=== PATIENT | female | born 1995 | race Two or more races ===

== ENCOUNTER 2024-10-07 17:29 | Emergency (ER) | payer MEDICAID ==
[~2024-10-07] VITALS: Ht 152.4 cm; Wt 45.6 kg
[2024-10-07] MEDS: ACETAMINOPHEN/CODEINE#3 (300/30mg) TAB PO ONE (18:34)
[2024-10-07] MEDS: TETANUS-DIPTH-ACEL PERTUSSIS 0.5ML SYR Tdap IM ONE (18:34)
[2024-10-07] MEDS ORDERED: ACET500T58 PO (18:35)
[2024-10-07] MEDS ORDERED: AMOX875T4 PO (18:35)
[2024-10-07] MEDS: ONDANSETRON ODT 4 MG TAB PO ONE (18:35)
--- NOTE | 2024-10-07 18:38 | ED.PDOC ---
HPI Comments 29-year-old female presents to ER with complaints of laceration to right foot x 15 minutes. Patient reports that she stepped on broken glass with her right foot while walking barefoot in her home 15 minutes prior to arrival to ER and sustained laceration to right foot at that time. Notes that her did pull out a large shard of glass with his fingers and is unsure if any other glass is remaining in her right foot. She rates her current pain a 9/10 to right foot without radiation and is unsure when her last tetanus shot was. Denies numbness/tingling or any further symptoms/complaints Chief Complaint: Laceration Time Seen by MD: 18:10 Primary Care Provider: GHANSHYAM Bergman Notes: Nurses Notes, Medications, Allergies Allergies: Coded Allergies: NO KNOWN ALLERGIES (Unverified , 12/13/12) Home Meds Active Scripts Acetaminophen (Acetaminophen) 500 Mg Tab, 500 MG PO Q4HPRN, #30 TAB 0 Refills Prov:BRENDON MENDEZ 10/07/24 Amoxicillin & Pot Clavulanate (Amoxicillin/Potassium Cla) 875 Mg Tab, 1 TAB PO BID for 7 Days, #14 TAB 0 Refills Prov:BRENDON MENDEZ 10/07/24 Information Source: Patient Mode of Arrival: Wheelchair Complexity: Simple Last Tetanus: Unknown Laceration Length (cm): 3 Past Medical History PAST MEDICAL HISTORY: Anemia Surgical History: Denies all surgeries EMERY WHEEL MOLDER History: No Pertinent EMERY WHEEL MOLDER History [facility] 10-05-24 Family History Family History: Unknown Social History Smoker: Cigarettes, Less Than 1 Pack/Day Alcohol: Denies ETOH Use Drugs: Denies Drug Use Lives In: Home Constitutional: denies: chills, diaphoresis, fatigue, fever, malaise, sweats, weakness, others EENTM: denies: blurred vision, double vision, ear bleeding, ear discharge, ear drainage, ear pain, ear ringing, eye pain, eye redness, hearing loss, mouth pain, mouth swelling, nasal discharge, nose bleeding, nose congestion, nose pain, photophobia, tearing, throat pain, throat swelling, voice changes, others Respiratory: denies: cough, hemoptysis, orthopnea, SOB at rest, shortness of breath, SOB with excertion, stridor, wheezing, others Cardiovascular: denies: chest pain, dizzy spells, diaphoresis, Dyspnea on exertion, edema, irregular heart beat, left arm pain, lightheadedness, palpitations, PND, syncope, others Gastrointestinal: denies: abdomen distended, abdominal pain, blood streaked bowels, constipated, diarrhea, dysphagia, difficulty swallowing, hematemesis, melena, nausea, poor appetite, poor fluid intake, rectal bleeding, rectal pain, vomiting, others Genitourinary: denies: abnormal vagina bleeding, burning, dyspareunia, dysuria, flank pain, frequency, hematuria, incontinence, pain, , vagina discharge, urgency, others Neurological: denies: dizziness, fainting, headache, left sided numbness, left sided weakness, numbness, paresthesia, pre-existing deficit, right sided numbness, right sided weakness, seizure, speech problems, tingling, tremors, weakness, others Musculoskeletal: denies: back pain, gout, joint pain, joint swelling, muscle pain, muscle stiffness, neck pain, others Integumetry: reports: others (As stated in HPI) Allergic/Immunocompromised: denies: Difficulty Healing, Frequent Infections, Hives, Itching, others Hematologic/Lymphatic: denies: anemia, blood clots, easy bleeding, easy bruising, swollen glands, others Endocrine: denies: excessive hunger, excessive sweating, excessive thirst, excessive urination, flushing, intolerance to cold, intolerance to heat, unexplained weight gain, unexplained weight loss, others Psychiatric: denies: anxiety, bipolar disorder, depression, hopeless, panic disorder, schizophrenia, sleepless, suicidal, others Physical Exam General Appearance: No Apparent Distress HEENT: PERRL/EOMI Neck: Full Range of Motion, Non-Tender, Normal Respiratory: Chest Non-Tender, Lungs Clear, No Accessory Muscle Use, No Respiratory Distress, Normal Breath Sounds Cardiovascular: No Murmur, No Gallop, Regular Rate/Rhythm Breast Exam: Deferred Gastrointestinal: NOT DONE Genitalia: Deferred Pelvic: Deferred Rectal: Deferred Extremities: Normal capillary refill, Normal range of motion Neurologic: Alert, No Motor Deficits, Normal Affect, Normal Mood, No Sensory Deficits Cerebellar Function: Normal Reflexes: Normal Skin: Dry, Warm Peripheral Pulses: 2+ dorsalis pedis (R), 2+ dorsalis pedis (L) Lymphatic: No Adenopathy Was a procedure done? Was a procedure done?: Yes Sedation Sedation?: No Laceration Repair : Location Right foot Length 3 cm Anesthetic: Lidocaine (1%), Without epi Laceration Repair Prep: Saline, Betadine, by Irrigation (without any signs of foreign body) Laceration Repair Wound Comple: epidermis/dermis repair Laceration Repair: Number of sutures (3 placed - patient tolerated well without any complication), Size (4-0), Nylon, Simple, Non-adherent gauze Informed consent obtained: Yes Risks, benefits, and alternati: Yes Images 1 - 3 cm laceration noted. Slight TTP/swelling/erythema localized to wound edges. No foreign body/further skin changes noted. Pulses intact. Patient favors left leg on ambulation due to pain localized to laceration of right foot Differential diagnosis Generic Laceration: Fracture, Retained Foriegn Body, Neurovascular Injury, Tendon Injury X-Ray, Labs, Meds, VS Vital Signs Date Time Temp Pulse Resp B/P (MAP) Pulse Ox O2 Delivery O2 Flow Rate FiO2 10/07/24 18:41 86 18 98 Room Air 10/07/24 18:41 98.6 86 16 122/89 (100) 97 98.6 10/07/24 17:33 97.8 90 24 123/95 97 97.8 Current Medications Medications (Trade) Dose Ordered Sig/Seun Route Start Time Stop Time Status Last Admin Diphtheria/ Tetanus/Acell Pertussis (Boostrix T-Dap) 0.5 ml ONCE ONCE IM 10/07/24 18:30 10/07/24 18:31 DC 10/07/24 18:34 Acetaminophen/ Codeine Phosphate (Tylenol W/Cod #3 Tablet) 1 tab ONCE ONCE PO 10/07/24 18:30 10/07/24 18:31 DC 10/07/24 18:34 Ondansetron HCl (Zofran Po) 4 mg ONCE ONCE PO 10/07/24 18:30 10/07/24 18:31 DC 10/07/24 18:35 PATIENT: ANTHONY LITTLEJOHN: [id number]: [id number] : 1995 LOC: ER ROOM / BED: / AGE / SEX: 29 / F ADM STATUS: REG ER SERVICE [id number] ORDERING PHYSICIAN: BRENDON MENDEZ PROCEDURE(s): RFOOT - R FOOT 3 VIEW XRAY REASON: right foot pain/laceration ORDER NUMBER(s): [id number], ACCESSION NUMBER(s): [id number] Indication: right foot pain/laceration Technique: XY R FOOT 3 VIEW XRAYXY Comparison: None FINDINGS/IMPRESSION: No radiographic evidence for acute fracture or dislocation. Soft tissue edema in the heel region. No radiopaque foreign body ATED BY: ZEE TIPTON MD DICTATED DATE/TIME: 10/07/241903 SIGNED BY: ZEE TIPTON MD SIGNED DATE/TIME: 10/07/241903 CC: Right foot x-ray reviewed Patient neurovascularly intact and in no distress prior to discharge Tdap 0.5 mL IM ordered Tylenol # three one tablet p.o. ordered Zofran 4 mg p.o. ordered Wound care/cleaning discussed and advised Advised to follow up in 10-14 days for removal of sutures Advised to follow up with PCP in 1-2 days Patient verbalized understanding and agreeable with current plan of care Advised to return to ER immediately if symptoms worsen Images Reviewed?: Images reviewed and evaluated by me Time of 1ST Reevaluation: 18:14 Reevaluation 1ST: N/A Patient Education/Counseling: Diagnosis, Treatment, Prognosis, Need For Follow Up Family Education/Counseling: No Family Present Departure 1 Departure Time of Disposition: 19:08 Impression: Primary Impression: Laceration of foot, right Qualified Codes: S91.311A - Laceration without foreign body, right foot, initial encounter Disposition: 01 HOME / SELF CARE / HOMELESS Condition: Stable e-Prescriptions Acetaminophen (Acetaminophen) 500 Mg Tab 500 MG PO Q4HPRN, #30 TAB 0 Refills Prov: BRENDON MENDEZ 10/07/24 Amoxicillin & Pot Clavulanate (Amoxicillin/Potassium Cla) 875 Mg Tab 1 TAB PO BID for 7 Days, #14 TAB 0 Refills Prov: BRENDON MENDEZ 10/07/24 Discharged With: Friend Critical Care Note Critical Care Time?: No Stability Stability form required: No Heart Score Heart Score: Heart Score Response (Comments) Value History N/A 0 EKG N/A 0 Age N/A 0 Risk Factors N/A 0 Troponin N/A 0 Total 0 BRENDON MENDEZ Oct 07, 2024 18:38
[2024-10-07 18:41] VITALS: BP 122/89; PULSE 86; RESP 18; TEMP 98.6; O2SAT 98
--- NOTE | 2024-10-07 19:04 | DVH ---
Indication: right foot pain/laceration Technique: XY R FOOT 3 VIEW XRAYXY Comparison: None FINDINGS/IMPRESSION: No radiographic evidence for acute fracture or dislocation. Soft tissue edema in the heel region. No radiopaque foreign body
== END 2024-10-07 19:30 | disposition home or self-care (01) ==
LOC: ER 17:29
DX: S91.311A Laceration without foreign body, right foot, initial encounter (principal); F17.210 Nicotine dependence, cigarettes, uncomplicated; Z79.899 Other long term (current) drug therapy; Z23 Encounter for immunization; Y93.A3 Activity, aerobic and step exercise; Y93.01 Activity, walking, marching and hiking; Y92.098 Other place in other non-institutional residence as the place of occurrence of the external cause; Y99.8 Other external cause status
CPT/HCPCS: 12002; 73630; 90471; 90715; 99283; Q0162